=== PATIENT | female | born 1965 | race American Indian/Alaskan Native ===

== ENCOUNTER 2016-06-02 12:32 | Emergency (ER) | payer MEDICARE ==
[2016-06-02] MEDS ORDERED: MOTRIN PO ONE (17:28)
--- NOTE | 2016-06-02 17:36 | Emergency Department Report ---
ED Extremity Problem HPI - General Chief complaint: Pain General Stated complaint: HIP/WRIST/ELBOW PAIN Time Seen by Provider: 06/02/16 17:10 Source: patient Mode of arrival: Ambulatory Limitations: No Limitations - History of Present Illness Initial comments: PT states she woke up at 0400 to use the bathroom and she had L elbow and R hip pain. PT states she had her L hip replaced in 2001 sp fracture. PT states that she first started having R hip pain in 2006 and it would only hurt once in a while but now the pain is gradually becoming more frequent. PT states if she pivots wrong, she can feel her hip pop. PT states it sounds like arthritis because the pain is worse when the weather is bad. 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 MD Complaint: joint paint Onset/Timin -: hour(s) Location: left, right, upper extremity, lower extremity History of Same: Yes (R hip pain ) -: No fever Severity scale (0 -10): 6 Quality: aching Consistency: constant Improves with: nothing Worsens with: weight bearing, walking, other (rain ) Associated Symptoms: denies: fever, myalgias - Related Data Previous Rx's Medication Instructions Recorded Last Taken Type traMADol [Ultram 50 MG tab] 50 mg PO Q6HR PRN #15 tablet 12/15/12 Unknown Rx Cyclobenzaprine [Flexeril] 10 mg PO TID PRN #15 tablet 09/02/15 Unknown Rx Ibuprofen [Motrin 800 MG tab] 800 mg PO Q8HR PRN #30 tablet 09/02/15 Unknown Rx Allergies Allergy/AdvReac Type Severity Reaction Status Date / Time dicloxacillin [Dicloxacillin] Allergy Hives Verified 12/15/12 07:57 ED Review of Systems ROS: Stated complaint: HIP/WRIST/ELBOW PAIN Other details as noted in HPI Comment: All other systems reviewed and negative Constitutional: denies: chills, fever Gastrointestinal: denies: abdominal pain, nausea, vomiting Musculoskeletal: arthralgia. denies: back pain Skin: denies: rash ED Past Medical Hx - Past Medical History Hx Diabetes: Yes Hx HIV: Yes Additional medical history: heart murmur - Surgical History Additional Surgical History: Left Hip replacement- 2003 / sex change - Social History Smoking Status: Current Every Day Smoker Substance Use Type: None - Medications Home Medications: Home Medications Medication Instructions Recorded Confirmed Last Taken Type traMADol [Ultram 50 MG tab] 50 mg PO Q6HR PRN #15 tablet 12/15/12 09/02/15 Unknown Rx Cyclobenzaprine [Flexeril] 10 mg PO TID PRN #15 tablet 09/02/15 Unknown Rx Ibuprofen [Motrin 800 MG tab] 800 mg PO Q8HR PRN #30 tablet 09/02/15 Unknown Rx ED Physical Exam - General Limitations: No Limitations General appearance: alert, in no apparent distress - Head Head exam: Present: atraumatic, normocephalic - Eye Eye exam: Present: normal appearance. Absent: conjunctival injection - ENT ENT exam: Present: normal exam - Neck Neck exam: Present: normal inspection, full ROM. Absent: tenderness - Respiratory Respiratory exam: Present: normal lung sounds bilaterally. Absent: respiratory distress, wheezes - Cardiovascular Cardiovascular Exam: Present: regular rate, normal rhythm - GI/Abdominal GI/Abdominal exam: Present: soft. Absent: tenderness - Extremities Exam Extremities exam: Present: normal inspection, tenderness, normal capillary refill. Absent: pedal edema, joint swelling, calf tenderness - Expanded Upper Extremity Exam Left Shoulder Exam: Present: normal inspection, full ROM Upper Arm exam: Present: normal inspection Elbow exam: Present: normal inspection, tenderness (to post elbow ). Absent: swelling, ecchymosis, deformity, tenderness over radial head Forearm Wrist exam: Present: normal inspection. Absent: tenderness, swelling Right Elbow exam: Present: normal inspection, full ROM. Absent: tenderness Forearm Wrist exam: Present: normal inspection, full ROM. Absent: tenderness Hand Wrist exam: Present: normal inspection, full ROM. Absent: tenderness - Expanded Lower Extremity Exam Right Hip exam: Present: normal inspection, full ROM, tenderness (to ant hip). Absent : swelling, deformity, shortening Lower Leg exam: Present: normal inspection Neuro vascular tendon exam: Present: no vascular compromise. Absent: pulse deficit - Back Exam Back exam: Present: normal inspection, full ROM - Neurological Exam Neurological exam: Present: alert, oriented X3 - Psychiatric Psychiatric exam: Present: normal affect, normal mood - Skin Skin exam: Present: warm, dry, intact ED Course Vital Signs 06/02/16 06/02/16 13:08 17:50 Temperature 98.1 F Pulse Rate 84 Respiratory 18 16 Rate Blood Pressure 103/75 O2 Sat by Pulse 97 Oximetry - Reevaluation(s) Reevaluation #1: 06/02/16 17:43 PT aware of plan of care Reevaluation #2: 06/02/16 18:39 PT aware of XR results. Dr Yanez aware and agrees with plan of care. Reevaluation #3: 06/02/16 21:21 pt not in room 06/02/16 22:19 PT in room. Discussed CT report with pt. PT aware she will need to follow up with Ortho. PT given strict return precautions, at this time, R thigh not erythematous and tender. - Pulse Oximetry Interpretation Digit-Finger Initial Pulse Oximetry Readin ED Medical Decision Making - Radiology Data Radiology results: report reviewed XR L elbow- NAP R hip- suggested subchondral lucency in the R femoral head may represent fx or avn. L fixation screw is backed out 8 mm from plate relative to other screws. CT R hip mild right hip OA, subchondral cyst numerous soft tissue nodule throughout the R thigh. - Differential Diagnosis AVN, OA, tendonitis Critical care attestation.: If time is entered above; I have spent that time in minutes in the direct care of this critically ill patient, excluding procedure time. ED Disposition Clinical Impression: Left elbow pain, Nodule of soft tissue OA (osteoarthritis) of hip Qualifiers: Osteoarthritis type: primary Laterality: right Qualified Code(s): M16.11 - Unilateral primary osteoarthritis, right hip Disposition: DISCHARGED TO HOME OR SELFCARE Is pt being admited?: No Does the pt Need Aspirin: No Condition: Stable Instructions: Osteoarthritis (ED), Tennis Elbow (ED) Additional Instructions: When you follow up with the ORTHO MD, bring the records (including any imaging you have) from your L hip surgery No driving or ETOH with Tylenol #3 IF you notice redness or warmth to your R thigh, return to the ED Referrals: THI LO MD [Primary Care Provider] - 3-5 Days PILAR GRACE MD [Staff Physician] - 3-5 Days Forms: Work/School Release Form(ED) Time of Disposition: 22:27
--- NOTE | 2016-06-02 18:11 | XRay Report ---
FINAL REPORT EXAM: XR HIP 2-3V RT HISTORY: RIGHT HIP pain COMPARISONS: None. FINDINGS: AP pelvis and lateral views of the right hip Patient status post left acetabular/posterior fixation. A central fixation screw is backed out from the plate approximately 8 millimeters relative to the other screws. The right hip joint is intact. There is an ill-defined area of lucency in the subchondral region of the superior right femoral head measuring up to 2.5 cm. Mild right hip osteoarthrosis. Spherical shape of the right femoral head is within normal limits. No displaced femur or pelvic fractures. IMPRESSION: Suggested subchondral lucency in the right femoral head may be secondary to overlapping structures, avascular necrosis or a subchondral insufficiency fracture. MRI is recommended for further evaluation. Left acetabular plate and screw fixation. One fixation screw is backed out from the plate approximately 8 millimeters relative to the other screws. Correlation with prior postoperative imaging is requested.
--- NOTE | 2016-06-02 18:18 | XRay Report ---
FINAL REPORT EXAM: XR ELBOW 2V LT HISTORY: pain, decreased rom COMPARISONS: None. FINDINGS: AP and lateral views left elbow No bone lesion, periosteal reaction, or fracture. No deformity or gross malalignment. No joint effusion. IMPRESSION: No fracture, gross malalignment or joint effusion involving the left elbow.
--- NOTE | 2016-06-02 20:45 | Cat Scan Report ---
FINAL REPORT EXAM: CT LOWER EXTREMITY RT WO CON HISTORY: abnormal hip xr TECHNIQUE: CT images are acquired through the right hip without contrast. Transaxial coronal and sagittal reformations are provided. PRIORS: Right hip radiograph of the same date FINDINGS: Mild right hip osteoarthrosis. The lucency described on comparison radiograph of the same date is a subchondral cyst in the superior acetabulum measuring up to 13 millimeters. Much smaller subchondral cysts are present in the right femoral head. No visualized fracture. Numerous soft tissue nodules throughout the right thigh. Vascular calcification noted. IMPRESSION: Mild right hip osteoarthrosis accounts for radiographic findings. No fractures. Extensive soft tissue nodularity throughout the right thigh. Differential diagnosis includes neurofibromatosis type 1 as well as infectious/inflammatory reaction and edema. Clinical correlation is requested.
[2016-06-02 22:36] VITALS: BP 138/79
== END 2016-06-02 22:35 | disposition home or self-care (01) ==
LOC: ED 12:32
DX: M16.11 Unilateral primary osteoarthritis, right hip (principal); M25.522 Pain in left elbow; E11.9 Type 2 diabetes mellitus without complications; Z21 Asymptomatic human immunodeficiency virus [HIV] infection status; F17.200 Nicotine dependence, unspecified, uncomplicated
CPT/HCPCS: 99284